=== PATIENT | male | born 1990 | race Caucasian/White ===

== ENCOUNTER 2018-11-22 13:26 | Emergency (ER) | payer OTHER ==
[~2018-11-22] VITALS: Ht 170.2 cm; Wt 83.9 kg
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
--- NOTE | 2018-11-22 14:06 | NUR ---
PA MAIN AT BEDSIDE
--- NOTE | 2018-11-22 14:27 | NUR ---
COKE DRAWER AT BEDSIDE
[2018-11-22] MEDS ORDERED: IBUPROFEN 400 MG TABLET ONE (14:29)
[2018-11-22] MEDS ORDERED: IBUPROFEN 400 MG TABLET PO ONE (14:30)
--- NOTE | 2018-11-22 15:38 | NUR ---
Patient discharged to home in stable condition. Written and verbal after care instructions given. Patient verbalizes understanding of instruction.
[2018-11-22 15:41] VITALS: BP 142/90
== END 2018-11-22 15:43 | disposition home or self-care (01) ==
LOC: ER 13:30
DX: S90.31XA Contusion of right foot, initial encounter (principal); S20.212A Contusion of left front wall of thorax, initial encounter; S60.221A Contusion of right hand, initial encounter; S00.12XA Contusion of left eyelid and periocular area, initial encounter; S80.212A Abrasion, left knee, initial encounter; S09.8XXA Other specified injuries of head, initial encounter; F41.9 Anxiety disorder, unspecified; V18.0XXA Pedal cycle driver injured in noncollision transport accident in nontraffic accident, initial encounter; Y93.55 Activity, bike riding; Y92.410 Unspecified street and highway as the place of occurrence of the external cause; Y99.8 Other external cause status
CPT/HCPCS: 70450-TC; 71100-TC; 73130-TC; 73630-TC

== ENCOUNTER 2020-07-13 06:00 | Emergency (ER) | payer OTHER ==
[~2020-07-13] VITALS: Ht 170.2 cm; Wt 74.8 kg
[2020-07-13 06:04] VITALS: BP 149/87
== END 2020-07-13 07:01 | disposition home or self-care (01) ==
LOC: ER 06:05
DX: F41.9 Anxiety disorder, unspecified (principal); F17.200 Nicotine dependence, unspecified, uncomplicated

== ENCOUNTER 2022-03-30 19:46 | Emergency (ER) | payer OTHER ==
[~2022-03-30] VITALS: Ht 170.2 cm; Wt 74.8 kg
[2022-03-30 20:06] VITALS: BP 124/76
[2022-03-31] MEDS ORDERED: IBUPROFEN 600 MG TABLET ONE (04:22)
[2022-03-31] MEDS ORDERED: IBUPROFEN 600 MG TABLET PO ONE (04:30)
== END 2022-03-31 05:08 | disposition home or self-care (01) ==
LOC: ER 19:57
DX: F10.129 Alcohol abuse with intoxication, unspecified (principal); Y90.8 Blood alcohol level of 240 mg/100 ml or more; R53.1 Weakness; K74.60 Unspecified cirrhosis of liver
CPT/HCPCS: 36415; 82962-TC; G0480

== ENCOUNTER → 2024-02-21 | Emergency (ER) | payer MEDICAID, OTHER ==
[~2024-02-21] VITALS: Ht 170.2 cm; Wt 90.7 kg
[~2024-02-21] MED LIST: AMOX-430 PO; KETO10TA2 PO; PSEU120T83 PO
[2024-02-21 20:02] LABS: BASOPHILS % (AUTO) 0.7 % (0.0-2.0); HEMATOCRIT 46 % (39-51); HEMOGLOBIN 15.5 g/dL (13.5-17.5); LYMPHOCYTES # (AUTO) 1.7 K/uL (0.8-4.8); LYMPHOCYTES % (AUTO) 34.5 % (20.0-44.0); MEAN CORPUSCULAR HEMOGLOBIN 30 PG (26.0-33.0); MEAN CORPUSCULAR HGB CONC 34 g/dl (31.0-36.0); MEAN CORPUSCULAR VOLUME 90 fL (80-96); MONOCYTES # (AUTO) 0.3 K/uL (0.1-1.30); MONOCYTES % (AUTO) 7.2 % (2.0-12.0); NEUTROPHILS # (AUTO) 2.7 K/uL (1.8-8.9); NEUTROPHILS % (AUTO) 56.6 % (43.0-81.0); PLATELET COUNT (AUTO) 173 K/uL (150-450); RED CELL DISTRIBUTION WIDTH 13.4 % (11.5-15.0); WHITE BLOOD COUNT (AUTO) 4.8 K/uL (4.3-11.0)
[2024-02-21 20:08] LABS: CARBON DIOXIDE 28 mmol/L (21-32); CHLORIDE 107 mmol/L (98-107); CREATININE 0.8 mg/dL (0.6-1.3); GLUCOSE 116 mg/dL (74-106); POTASSIUM 3.4 mmol/L (3.5-5.1); SODIUM SERUM 147 mmol/L (136-145); UREA NITROGEN, BLOOD 10 mg/dL (7-18)
[2024-02-21 20:16] LABS: ALANINE AMINOTRANSFERASE 38 U/L (12-78); ALBUMIN 3.8 g/dL (3.4-5.0); ALCOHOL, BLOOD 477 mg/dL (0-10); ALKALINE PHOSPHATASE 107 U/L (46-116); ASPARTATE AMINOTRANSFERASE 44 U/L (15-37); BILIRUBIN,DIRECT 0.2 mg/dL (0.0-0.2); BILIRUBIN,TOTAL 0.9 mg/dL (0.2-1.0); TOTAL PROTEIN, SERUM 7.5 g/dL (6.4-8.2)
[2024-02-21 21:24] LABS: APPEARANCE,URINE Clear (CLEAR); BILIRUBIN,URINE SMALL (NEGATIVE); BLOOD, URINE Small Ery/uL (NEGATIVE); COLOR,URINE YELLOW (YELLOW); KETONES,URINE Trace mg/dL (NEGATIVE); LEUKOCYTE ESTERASE ,URINE Negative (NEGATIVE); NITRITE, URINE Negative (NEGATIVE); PROTEIN,URINE >=300 mg/dl (NEGATIVE); UGLUCOSE 250 MG/DL mg/dL (NEGATIVE)
[2024-02-21 21:26] LABS: ADD URINE CULTURE NO; BACTERIA,URINE Few /HPF (None Seen); HYALINE CASTS, URINE Few /LPF (None Seen); SQUAMOUS EPITHELIAL CELL,UR None Seen /HPF (None Seen)
[2024-02-21 21:35] LABS: AMPHETAMINE, URINE NEGATIVE (NEGATIVE); BARBITURATE, URINE NEGATIVE (NEGATIVE); BENZODIAZEPINE, URINE NEGATIVE (NEGATIVE); CANNABINOID, URINE NEGATIVE (NEGATIVE); COCCAINE, URINE NEGATIVE (NEGATIVE); OPIATE, URINE NEGATIVE (NEGATIVE); PHENCYCLIDINE SCREEN,URINE NEGATIVE (NEGATIVE)
[2024-02-21] MEDS: IV NS 0.9% 1,000 ML BAG IV ONE (22:48)
[2024-02-22 04:00] VITALS: BP 129/95; TEMP 99; O2SAT 96
== END | disposition home or self-care (01) ==
LOC: ER 18:20
DX: F10.129 Alcohol abuse with intoxication, unspecified (principal); Y90.8 Blood alcohol level of 240 mg/100 ml or more; R94.31 Abnormal electrocardiogram [ECG] [EKG]; R51.9 Headache, unspecified; R07.9 Chest pain, unspecified; F19.10 Other psychoactive substance abuse, uncomplicated; F17.200 Nicotine dependence, unspecified, uncomplicated; Z60.2 Problems related to living alone; Z59.00 Homelessness unspecified
CPT/HCPCS: 99285; 96360; 93005; 71045; 72125; 70450; 85025; 80048; 80076; 81001; 36415; 84484 ×2; 82962; 80320; 80307; J7030; G0480

== ENCOUNTER 2024-02-26 23:05 | Emergency (ER) | payer OTHER ==
[~2024-02-26] VITALS: Ht 167.6 cm; Wt 83.9 kg
[2024-02-27 01:46] VITALS: BP 121/79; TEMP 98.5; O2SAT 99
== END 2024-02-27 01:47 | disposition home or self-care (01) ==
LOC: ER 23:06
DX: F10.129 Alcohol abuse with intoxication, unspecified (principal); K74.60 Unspecified cirrhosis of liver; F19.10 Other psychoactive substance abuse, uncomplicated; F17.200 Nicotine dependence, unspecified, uncomplicated; Z60.2 Problems related to living alone

== ENCOUNTER 2024-03-01 11:43 | Inpatient (IN) | payer OTHER ==
[~2024-03-01] VITALS: Ht 198.1 cm; Wt 90.7 kg
[2024-03-01] MEDS: IV NS 0.9% 1,000 ML BAG IV ONE (12:38)
[2024-03-01 12:49] LABS: BASOPHILS % (AUTO) 0.4 % (0.0-2.0); EOSINOPHILS % (AUTO) 0.3 % (0.0-6.0); HEMATOCRIT 41 % (39-51); HEMOGLOBIN 13.9 g/dL (13.5-17.5); LYMPHOCYTES % (AUTO) 20.5 % (20.0-44.0); MEAN CORPUSCULAR HEMOGLOBIN 30 PG (26.0-33.0); MEAN CORPUSCULAR HGB CONC 34 g/dl (31.0-36.0); MEAN CORPUSCULAR VOLUME 88 fL (80-96); MONOCYTES # (AUTO) 0.4 K/uL (0.1-1.30); MONOCYTES % (AUTO) 7.9 % (2.0-12.0); NEUTROPHILS # (AUTO) 3.5 K/uL (1.8-8.9); NEUTROPHILS % (AUTO) 70.9 % (43.0-81.0); RED BLOOD CELL COUNT(AUTO) 4.61 MIL/uL (4.5-6.0); WHITE BLOOD COUNT (AUTO) 4.9 K/uL (4.3-11.0)
[2024-03-01 12:50] LABS: PLATELET COUNT (AUTO) 42 K/uL (150-450)
[2024-03-01 12:51] LABS: APPEARANCE,URINE CLEAR (CLEAR); BILIRUBIN,URINE 1+ (NEGATIVE); BLOOD, URINE TRACE-INTA Ery/uL (NEGATIVE); KETONES,URINE TRACE mg/dL (NEGATIVE); LEUKOCYTE ESTERASE ,URINE NEGATIVE (NEGATIVE); NITRITE, URINE NEGATIVE (NEGATIVE); PROTEIN,URINE 2+ mg/dl (NEGATIVE); UGLUCOSE NEGATIVE (NEGATIVE)
[2024-03-01 12:57] LABS: CALCIUM, SERUM 8.5 mg/dL (8.5-10.1); CARBON DIOXIDE 24 mmol/L (21-32); CHLORIDE 96 mmol/L (98-107); CREATININE 0.7 mg/dL (0.6-1.3); GLUCOSE 122 mg/dL (74-106); SODIUM SERUM 136 mmol/L (136-145); UREA NITROGEN, BLOOD 7 mg/dL (7-18)
[2024-03-01 13:00] LABS: COLOR,URINE DARK YELLOW (YELLOW)
[2024-03-01 13:02] LABS: ADD URINE CULTURE NO; BACTERIA,URINE None seen /HPF (None Seen); RBC,URINE NONE SEEN /HPF (0-2); SQUAMOUS EPITHELIAL CELL,UR None Seen /HPF (None Seen); WBC,URINE NONE SEEN /HPF (0-3)
[2024-03-01 13:03] LABS: ALANINE AMINOTRANSFERASE 99 U/L (12-78); ALBUMIN 3.5 g/dL (3.4-5.0); ALKALINE PHOSPHATASE 85 U/L (46-116); ASPARTATE AMINOTRANSFERASE 109 U/L (15-37); BILIRUBIN,DIRECT 0.4 mg/dL (0.0-0.2); BILIRUBIN,TOTAL 1.3 mg/dL (0.2-1.0); LIPASE 53 U/L (16-77); TOTAL PROTEIN, SERUM 7.2 g/dL (6.4-8.2)
[2024-03-01 13:48] LABS: BASOPHILS % (MANUAL) 0 % (0.0-2.0); EOSINOPHILS % (MANUAL) 0 % (0-4); LYMPHOCYTES % (MANUAL) 21 % (16-48); MONOCYTES % (MANUAL) 12 % (0-11.0); NEUTROPHILS % (MANUAL) 67 (42-76)
[2024-03-01 13:49] LABS: PLATELET ESTIMATE DECREASED
[2024-03-01] MEDS: POTASSIUM CHLORIDE 20 MEQ POWDER PACKET PO ONE (14:00)
[2024-03-01] MEDS ORDERED: IV NS 0.9% 1,000 ML IV SCH (14:30)
[2024-03-01] MEDS ORDERED: ONDANSETRON HCL/PF 4 MG/2 ML VIAL IVP PRN (14:30)
[2024-03-01] MEDS ORDERED: ACETAMINOPHEN 325 MG TABLET PO PRN (14:30)
[2024-03-01] MEDS ORDERED: IV NS 0.9% 1,000 ML IV PRN (16:54)
[2024-03-01 20:07] VITALS: BP 129/90; TEMP 98.2; O2SAT 100
[2024-03-01] MEDS: IV NS 0.9% 1,000 ML IV SCH (21:13)
[2024-03-01] MEDS: CHLORDIAZEPOXIDE HCL 25 MG CAPSULE PO SCH (21:15)
[2024-03-02] MEDS: LORAZEPAM INJ 2 MG/ML VIAL IV PRN (01:11)
[2024-03-02 03:40] VITALS: BP 129/90; TEMP 98.2; O2SAT 76
[2024-03-02 04:00] VITALS: BP 131/70; TEMP 98.2; O2SAT 100
[2024-03-02] MEDS: MORPHINE SULFATE INJ 2 MG/ML DISP.SYRIN IV PRN (06:18)
[2024-03-02 06:45] LABS: BASOPHILS % (AUTO) 0.5 % (0.0-2.0); EOSINOPHILS # (AUTO) 0.1 K/uL (0.0-0.7); EOSINOPHILS % (AUTO) 1.6 % (0.0-6.0); HEMATOCRIT 37 % (39-51); HEMOGLOBIN 12.6 g/dL (13.5-17.5); LYMPHOCYTES % (AUTO) 26.9 % (20.0-44.0); MEAN CORPUSCULAR HEMOGLOBIN 31 PG (26.0-33.0); MEAN CORPUSCULAR HGB CONC 35 g/dl (31.0-36.0); MEAN CORPUSCULAR VOLUME 90 fL (80-96); MONOCYTES # (AUTO) 0.4 K/uL (0.1-1.30); MONOCYTES % (AUTO) 11.6 % (2.0-12.0); NEUTROPHILS # (AUTO) 2.2 K/uL (1.8-8.9); NEUTROPHILS % (AUTO) 59.4 % (43.0-81.0); RED BLOOD CELL COUNT(AUTO) 4.08 MIL/uL (4.5-6.0); RED CELL DISTRIBUTION WIDTH 12.8 % (11.5-15.0); WHITE BLOOD COUNT (AUTO) 3.6 K/uL (4.3-11.0)
[2024-03-02 06:51] LABS: BILIRUBIN,TOTAL 1.7 mg/dL (0.2-1.0); CALCIUM, SERUM 8.3 mg/dL (8.5-10.1); CREATININE 0.7 mg/dL (0.6-1.3); MAGNESIUM 1.4 mg/dL (1.8-2.4); PHOSPHORUS 3.6 mg/dL (2.5-4.9); TOTAL PROTEIN, SERUM 6.4 g/dL (6.4-8.2)
[2024-03-02 06:55] LABS: PLATELET COUNT (AUTO) 33 K/uL (150-450)
[2024-03-02] MEDS: POTASSIUM CHLORIDE 20 MEQ TAB.PRT.SR PO ONE (08:17)
[2024-03-02] MEDS: CHLORDIAZEPOXIDE HCL 25 MG CAPSULE PO SCH ×2 (08:19→17:28)
[2024-03-02 10:19] LABS: BASOPHILS % (MANUAL) 0 % (0.0-2.0); EOSINOPHILS % (MANUAL) 3 % (0-4); LYMPHOCYTES % (MANUAL) 22 % (16-48); MONOCYTES % (MANUAL) 10 % (0-11.0); NEUTROPHILS % (MANUAL) 65 (42-76); PLATELET ESTIMATE DECREASED
[2024-03-02 10:20] LABS: ANISOCYTOSIS 1+
[2024-03-02] MEDS ORDERED: POTASSIUM CHLORIDE 20 MEQ TAB.PRT.SR PO SCH (10:30)
[2024-03-02 12:00] VITALS: BP 131/70; TEMP 98.2; O2SAT 100
[2024-03-02] MEDS: Magnesium 1GM/D5W 100ML PREMIX 100 ML IV SCH (12:11)
[2024-03-02] MEDS: THIAMINE HCL 100 MG TABLET PO SCH (12:22)
[2024-03-02] MEDS: NEUTRA PHOS 1 POWD.PACKET PO SCH (12:22)
[2024-03-02] MEDS: FOLIC ACID 1 MG TABLET PO SCH (12:22)
[2024-03-02 13:47] LABS: THYROID STIMULATING HORMONE 1.75 uIU/mL (0.358-3.74)
[2024-03-02 20:00] VITALS: BP 137/88; TEMP 98.2; O2SAT 98
[2024-03-02 20:12] LABS: RHEUMATOID FACTOR SCREEN NEGATIVE (NEGATIVE)
[2024-03-03 04:00] VITALS: BP 137/97; TEMP 98.1; O2SAT 97
[2024-03-03] MEDS: IV NS 0.9% 1,000 ML IV PRN (04:41)
[2024-03-03 07:01] LABS: CALCIUM, SERUM 8.7 mg/dL (8.5-10.1); CREATININE 0.6 mg/dL (0.6-1.3); POTASSIUM 3.4 mmol/L (3.5-5.1)
[2024-03-03 07:12] LABS: BASOPHILS % (AUTO) 0.2 % (0.0-2.0); EOSINOPHILS # (AUTO) 0.1 K/uL (0.0-0.7); HEMATOCRIT 40 % (39-51); HEMOGLOBIN 13.4 g/dL (13.5-17.5); LYMPHOCYTES % (AUTO) 24.3 % (20.0-44.0); MEAN CORPUSCULAR HEMOGLOBIN 31 PG (26.0-33.0); MEAN CORPUSCULAR HGB CONC 34 g/dl (31.0-36.0); MEAN CORPUSCULAR VOLUME 91 fL (80-96); MONOCYTES # (AUTO) 0.4 K/uL (0.1-1.30); MONOCYTES % (AUTO) 9.6 % (2.0-12.0); NEUTROPHILS # (AUTO) 2.5 K/uL (1.8-8.9); NEUTROPHILS % (AUTO) 62.9 % (43.0-81.0); RED BLOOD CELL COUNT(AUTO) 4.38 MIL/uL (4.5-6.0); RED CELL DISTRIBUTION WIDTH 13.2 % (11.5-15.0)
[2024-03-03 07:30] LABS: PLATELET COUNT (AUTO) 41 K/uL (150-450)
[2024-03-03] MEDS: POTASSIUM CHLORIDE 20 MEQ TAB.PRT.SR PO SCH (10:18)
[2024-03-03 11:31] LABS: BASOPHILS % (MANUAL) 0 % (0.0-2.0); EOSINOPHILS % (MANUAL) 3 % (0-4); LYMPHOCYTES % (MANUAL) 20 % (16-48); MONOCYTES % (MANUAL) 9 % (0-11.0); NEUTROPHILS % (MANUAL) 68 (42-76); PLATELET ESTIMATE DECREASED
[2024-03-03] MEDS ORDERED: CHLO25CA22 PO (11:46)
[2024-03-03] MEDS ORDERED: Thiamine HCL PO (11:46)
[2024-03-03 14:07] LABS: HIV-1 p24 ANTIGEN NON REACTIVE (NONREACTIVE); HIV-1/2 ANTIBODY NON REACTIVE (NONREACTIVE)
[2024-03-03] MEDS ORDERED: CHLORDIAZEPOXIDE HCL 25 MG CAPSULE PO SCH (17:00)
[2024-03-04] MEDS ORDERED: CHLORDIAZEPOXIDE HCL 25 MG CAPSULE PO SCH (09:00)
[2024-03-05 07:11] LABS: IMMUNOGLOBULIN A, SERUM 697 mg/dL (90-386); IMMUNOGLOBULIN G, SERUM 918 mg/dL (603-1613); IMMUNOGLOBULIN M, SERUM 39 mg/dL (20-172)
[2024-03-05 09:09] LABS: *ANA ANTI-CENTROMERE B AB <0.2 AI (0.0-0.9); *ANA ANTI-DNA(DS) AB, QN <1 IU/mL (0-9); *ANA ANTI-JO-1 <0.2 AI (0.0-0.9); *ANA ANTICHROMATIN ANTIBODY <0.2 AI (0.0-0.9); *ANA RNP ANTIBODIES <0.2 AI (0.0-0.9); *ANA SJOGREN'S ANTI-SS-A <0.2 AI (0.0-0.9); *ANA SJOGREN'S ANTI-SS-B <0.2 AI (0.0-0.9); *ANAANTI-SCLERODERMA-70 AB <0.2 AI (0.0-0.9); *ANASMITH AB <0.2 AI (0.0-0.9)
[2024-03-05 12:09] LABS: *SPE A/G RATIO 0.6 (0.7-1.7); *SPE ALBUMIN 2.3 g/dL (2.9-4.4); *SPE ALPHA-1-GLOBULIN 0.4 g/dL (0.0-0.4); *SPE BETA GLOBULIN 1.3 g/dL (0.7-1.3); *SPE GLOBULIN, TOTAL 3.6 g/dL (2.2-3.9); *SPE M-SPIKE Not Observed g/dL (Not Observed); *SPE PROTEIN TOTAL 5.9 g/dL (6.0-8.5); *SPEGAMMA GLOBULIN 0.8 g/dL (0.4-1.8)
[2024-03-06 19:06] LABS: FREE KAPPA LT CHAINS SERUM 42.4 mg/L (3.3-19.4); FREE LAMBDA LT CHAIN SERUM 42.4 mg/L (5.7-26.3)
== END 2024-03-03 15:30 | disposition home or self-care (01) | DRG 775 ==
LOC: ER 11:46 → TELE1 18:46 → MEDSG1 22:18
PROVIDERS: ADMIT Internal Medicine; ATTEND Internal Medicine
DX: F10.139 Alcohol abuse with withdrawal, unspecified (principal); D61.818 Other pancytopenia; D69.6 Thrombocytopenia, unspecified; M62.82 Rhabdomyolysis; E83.39 Other disorders of phosphorus metabolism; E87.20 Acidosis, unspecified; R16.0 Hepatomegaly, not elsewhere classified; E87.6 Hypokalemia; E83.42 Hypomagnesemia; K74.60 Unspecified cirrhosis of liver; K76.0 Fatty (change of) liver, not elsewhere classified; E80.6 Other disorders of bilirubin metabolism; R74.01 Elevation of levels of liver transaminase levels; D64.9 Anemia, unspecified; R55 Syncope and collapse; Z91.81 History of falling
CPT/HCPCS: 36415; 71045-TC; 76700-TC; 80048-TC; 80053-TC; 80076-TC; 81001; 82140-TC; 82550-TC; 82553; 82607-TC; 82728-TC; 82784; 83540-TC; 83690-TC; 83735-TC; 84100-TC; 84155; 84165; 84439-TC; 84443-TC; 84484-TC; 85025-TC; 85045-TC; 86140-TC; 86225; 86235; 86334; 86431-TC; 86706; 86803; 87086-TC; 87340; 87806; 93307-TC; 98960; G0378; J2060; J2270; J3475; J7030

== ENCOUNTER 2024-03-04 19:57 | Emergency (ER) | payer OTHER ==
[~2024-03-04] VITALS: Ht 170.2 cm; Wt 93.0 kg
[~2024-03-04 19:57] MED LIST changes: -AMOX-430 PO; +CHLO25CA22 PO; -KETO10TA2 PO; -PSEU120T83 PO; +Thiamine HCL PO
[2024-03-05 06:29] VITALS: BP 121/69; TEMP 98; O2SAT 96
== END 2024-03-05 06:29 | disposition home or self-care (01) ==
LOC: ER 19:58
DX: F10.129 Alcohol abuse with intoxication, unspecified (principal); F17.200 Nicotine dependence, unspecified, uncomplicated; Z79.899 Other long term (current) drug therapy; Z60.2 Problems related to living alone
CPT/HCPCS: 82962-TC; 98960

== ENCOUNTER 2024-06-26 22:02 | Emergency (ER) | payer OTHER ==
[~2024-06-26] VITALS: Ht 170.2 cm; Wt 77.1 kg
[2024-06-26] MEDS: IV NS 0.9% 1,000 ML IV ONE (22:38)
[2024-06-26 22:44] LABS: BASOPHILS % (AUTO) 0.4 % (0.0-2.0); EOSINOPHILS % (AUTO) 0.4 % (0.0-6.0); HEMATOCRIT 48 % (39-51); HEMOGLOBIN 16.4 g/dL (13.5-17.5); LYMPHOCYTES # (AUTO) 1.3 K/uL (0.8-4.8); LYMPHOCYTES % (AUTO) 16.8 % (20.0-44.0); MEAN CORPUSCULAR HEMOGLOBIN 30 PG (26.0-33.0); MEAN CORPUSCULAR HGB CONC 35 g/dl (31.0-36.0); MEAN CORPUSCULAR VOLUME 88 fL (80-96); MONOCYTES # (AUTO) 0.4 K/uL (0.1-1.30); MONOCYTES % (AUTO) 5.2 % (2.0-12.0); NEUTROPHILS # (AUTO) 5.8 K/uL (1.8-8.9); NEUTROPHILS % (AUTO) 77.2 % (43.0-81.0); PLATELET COUNT (AUTO) 96 K/uL (150-450); RED BLOOD CELL COUNT(AUTO) 5.41 MIL/uL (4.5-6.0); RED CELL DISTRIBUTION WIDTH 13.5 % (11.5-15.0); WHITE BLOOD COUNT (AUTO) 7.5 K/uL (4.3-11.0)
[2024-06-26 22:56] LABS: CALCIUM, SERUM 7.9 mg/dL (8.5-10.1); CREATININE 0.8 mg/dL (0.6-1.3); POTASSIUM 3.4 mmol/L (3.5-5.1)
[2024-06-26 23:09] LABS: ALBUMIN 3.9 g/dL (3.4-5.0); BILIRUBIN,TOTAL 2.4 mg/dL (0.2-1.0); TOTAL PROTEIN, SERUM 7.8 g/dL (6.4-8.2)
[2024-06-27] MEDS ORDERED: POTASSIUM CHLORIDE 10 MEQ TABLET.SA ONE (00:01)
[2024-06-27] MEDS: POTASSIUM CHLORIDE 10 MEQ TABLET.SA PO ONE (00:10)
[2024-06-27] MEDS: IV NS 0.9% 1,000 ML IV ONE ×2 (00:19)
[2024-06-27 00:24] LABS: EOSINOPHILS % (MANUAL) 1 % (0-4); LYMPHOCYTES % (MANUAL) 18 % (16-48); MONOCYTES % (MANUAL) 6 % (0-11.0); NEUTROPHILS % (MANUAL) 75 (42-76)
[2024-06-27 00:29] LABS: ANISOCYTOSIS 1+; PLATELET ESTIMATE DECREASED
[2024-06-27 00:30] LABS: APPEARANCE,URINE CLEAR (CLEAR); BILIRUBIN,URINE 1+ (NEGATIVE); BLOOD, URINE 3+ Ery/uL (NEGATIVE); COLOR,URINE YELLOW (YELLOW); KETONES,URINE 1+ mg/dL (NEGATIVE); LEUKOCYTE ESTERASE ,URINE NEGATIVE (NEGATIVE); NITRITE, URINE NEGATIVE (NEGATIVE); PH,URINE 6.5 (5.0-8.0); PROTEIN,URINE 3+ mg/dl (NEGATIVE); UGLUCOSE TRACE mg/dL (NEGATIVE)
[2024-06-27 00:48] LABS: AMPHETAMINE, URINE NEGATIVE (NEGATIVE); BARBITURATE, URINE NEGATIVE (NEGATIVE); BENZODIAZEPINE, URINE NEGATIVE (NEGATIVE); CANNABINOID, URINE NEGATIVE (NEGATIVE); COCCAINE, URINE NEGATIVE (NEGATIVE); OPIATE, URINE NEGATIVE (NEGATIVE); PHENCYCLIDINE SCREEN,URINE NEGATIVE (NEGATIVE)
[2024-06-27 00:51] LABS: ADD URINE CULTURE NO; BACTERIA,URINE 1+ /HPF (None Seen); SQUAMOUS EPITHELIAL CELL,UR 0-2 /HPF (None Seen); WBC,URINE NONE SEEN /HPF (0-3)
[2024-06-27 04:28] VITALS: BP 124/70; TEMP 98; O2SAT 99
== END 2024-06-27 04:29 | disposition home or self-care (01) ==
LOC: ER 22:09
DX: F10.129 Alcohol abuse with intoxication, unspecified (principal); F17.200 Nicotine dependence, unspecified, uncomplicated; R51.9 Headache, unspecified; Z59.00 Homelessness unspecified; Y90.8 Blood alcohol level of 240 mg/100 ml or more
CPT/HCPCS: 99285; 96360; 93005; 71045; 70450; 82140; 85025; 85007; 81001; 36415; 80053; 84484; 83880; 80320; 80307; 96361; 98960; J7030; G0480